=== PATIENT | female | born 2005 | race African-American/Black ===

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

== ENCOUNTER 2023-10-22 10:57 | Emergency (ER) | payer SELFPAY ==
[2023-10-22 12:14] VITALS: RESP 18; TEMP 98.6; BMI 32.0
[2023-10-22 12:40] LABS: EPI CELLS 18 /uL (0-25.1); HCG,QUALITATIVE URINE Negative; HYALINE CASTS 0 /uL (0-3.1); PH,URINE 6.5 (5.0-8.0); URINE APPEARANCE CLEAR; URINE BACTERIA >9,000 /uL (0-1359); URINE BILIRUBIN NEGATIVE (NEGATIVE); URINE COLOR YELLOW; URINE GLUCOSE (UA) NEGATIVE (NEGATIVE); URINE KETONE NEGATIVE (NEGATIVE); URINE LEUK ESTERASE TRACE (NEGATIVE); URINE NITRITE POSITIVE (NEGATIVE); URINE PROTEIN NEGATIVE (NEGATIVE); URINE RBC 12 /uL (0-23.9); URINE WBC 79 /uL (0-25.8)
[2023-10-22] MEDS ORDERED: KETOROLAC TROMETHAMINE 30 MG/1 ML VIAL ONE (12:52)
[2023-10-22] MEDS: SODIUM CHLORIDE 0.9% 500 ML INFUS.BAG IV ONE (12:58)
[2023-10-22] MEDS: KETOROLAC TROMETHAMINE 30 MG/1 ML VIAL IVPUSH ONE (12:58)
[2023-10-22 13:04] LABS: BASO % 0.3 % (0-2.0); HEMATOCRIT 40.4 % (32.4-45.2); HEMOGLOBIN 13.4 GM/dL (10.7-15.3); LYMPH % 22.2 % (8-40); MCH 28.6 pg (25.7-33.7); MCHC 33.1 g/dl (32.0-36.0); MEAN CELL VOLUME 86.3 fl (80-96); MEAN PLT VOLUME 8.8 fl (7.5-11.1); MONO % 10.7 % (3.8-10.2); NEUT % 64.8 % (42.8-82.8); PLATELET COUNT 388 10^3/uL (134-434); RBC 4.68 M/mm3 (3.60-5.2); RDW 14.4 % (11.6-15.6); WHITE BLOOD COUNT 12.3 K/mm3 (4.0-10.0)
[2023-10-22 13:41] LABS: POTASSIUM 4.3 mmol/L (3.5-5.1)
[2023-10-22 13:43] LABS: BLOOD UREA NITROGEN 5.5 mg/dL (7-18); CALCIUM 9.9 mg/dL (8.5-10.1)
[2023-10-22 13:47] LABS: BILIRUBIN,TOTAL 2.1 mg/dL (0.2-1); CREATININE 0.8 mg/dL (0.55-1.3); TOT PROT 9.1 g/dl (6.4-8.2)
[2023-10-22] MEDS ORDERED: CEFTRIAXONE 1 GM/50 ML BAG ONE (15:39)
[2023-10-22] MEDS: CEFTRIAXONE 1,000 MG in DEXTROSE 5%-WATER - 50 ML IVPB ONE (15:52)
[2023-10-22 16:39] VITALS: BP 112/47; PULSE 98
[2023-10-22 16:41] LABS: THROAT:GRP A STREP NOT DETECTED (NOTDETECTED)
== END 2023-10-22 17:26 | disposition home or self-care (01) ==
LOC: JER 10:57
PROC: 3E03329 Introduction of Other Anti-infective into Peripheral Vein, Percutaneous Approach (ICD-10-PCS; principal; 2023-10-22)
PROC: 3E0333Z Introduction of Anti-inflammatory into Peripheral Vein, Percutaneous Approach (ICD-10-PCS; 2023-10-22)
DX: M79.10 Myalgia, unspecified site (principal); R07.2 Precordial pain; R05.9 Cough, unspecified; J02.9 Acute pharyngitis, unspecified; R68.83 Chills (without fever); N39.0 Urinary tract infection, site not specified; Z20.822 Contact with and (suspected) exposure to COVID-19
CPT/HCPCS: 0241U-QW; 36415; 71046-TC-FY; 80053; 81003; 84703; 85025; 87086; 87186; 87651; 93005; 93010; 99284-25